=== PATIENT | female | born 1995 | race Caucasian/White ===

== ENCOUNTER 2025-02-08 11:28 | Outpatient (CLI) | payer MEDICAID, SELFPAY ==
[2025-02-08] VITALS (17 sets, daily range): BP systolic 82–105; BP diastolic 52–64; PULSE 62–91; RESP 16–99; TEMP 36.8; O2SAT 91–99; BMI 27.3
--- NOTE | 2025-02-08 11:35 | XR_ITS ---
Examination: Biophysical profile, ultrasound Date and time of exam: February 08, 2025, 12:00 p.m. INDICATIONS: Nonreactive NST at the doctor's office today Technique: Multiple transabdominal sonographic images of the pelvis abdomen obtained. Attention is directed to the breathing movement, gross body movement, amniotic fluid volume and tone. Findings: Amniotic fluid index 7.7 cm Total biophysical profile is 8 of 8. breathing movement is 2. Gross body movement is 2. tone is 2. Qualitative amniotic fluid volume is 2 Impression: Biophysical profile is 8 8 of 8.
== END 2025-02-08 12:54 | disposition home or self-care (01) ==
LOC: S4S1 11:30 → S4SX 11:30
PROVIDERS: Referring Provider Specialist; Visit Provider Specialist
DX: Z34.83 Encounter for supervision of other normal pregnancy, third trimester (principal); Z36.89 Encounter for other specified antenatal screening; Z3A.40 40 weeks gestation of pregnancy
CPT/HCPCS: 59025; 76819

== ENCOUNTER 2025-02-11 00:01 | Inpatient (IN) | payer MEDICAID, SELFPAY ==
[2025-02-11] VITALS (44 sets, daily range): BP systolic 102–119; BP diastolic 58–88; PULSE 65–121; RESP 14–98; TEMP 36.4–36.8; O2SAT 84–100; BMI 27.1
[2025-02-11 01:12] LABS: ROM Kit Exp Date# 04/11/28; ROM Kit Lot # 58106258; Rupture of Fetal Membranes Negative (Negative); Swb Mxed in Solvent 1 min? Yes
[2025-02-11] MEDS: ceFAZolin/D5W 2 GM IV 2 GM/100 ML BAG IV (01:52)
[2025-02-11] MEDS: CITRIC ACID/SODIUM CITR 15 ML UDC (BICITRA) 30 ML PO (01:53)
[2025-02-11] MEDS: FAMOTIDINE INJ 10 MG/ML VIAL 2 ML 20 MG IV (01:53)
--- NOTE | 2025-02-11 02:06 | PD.LDHP ---
Documentation for date of: 02/11/25 OB Labor/Induct. HPI History of Present Illness : 3 Para: 2 Term pregnancies: 2 pregnancies: 0 Living children: 2 History of Abortions: Spontaneous and Elective: 0 History of Vaginal deliveries: 2 History of sections: No History of : No Date of last menstrual period: 05/02/25 JAKE: 02/06/25 Gestational age based on last menstrual period: -11 History of present illness: Presents to MIU with ctx and recurrent late deceleratons at 40 plus weeks with cx 2 cm. Comments: See record for history History of Present Adequate Care: Yes Past Medical History Surgical History SURGICAL: Negative Section Meds Home Medications and Allergies Home Medications ?Medication ?Instructions ?Recorded ?Confirmed ?Type vits no.124-ferrous fum 1 tab PO QDAY 07/08/18 02/11/25 History 27 mg iron-folic acid 800 mcg tablet ( Vitamin) ferrous sulfate 325 mg (65 mg 325 mg PO BID 02/08/25 02/11/25 History iron) tablet (Feosol) Allergies Allergy/AdvReac Type Severity Reaction Status Date / Time No Known Allergies Allergy Verified 02/11/25 00:12 OB Exam Physical Exam Vital signs: Temp Pulse Resp BP Pulse Ox O2 Del Method 98.2 F 78 16 113/73 100 Room Air 02/11/25 00:17 02/11/25 00:17 02/11/25 00:17 02/11/25 00:17 02/11/25 02:04 02/11/25 00:03 OB Results Labs 02/11/25 01:40 Impressions Impression: HEENT : oropharynx and sclera clear Lungs : CTA B/L Heart:? RRR Abdomen: Gravid.?? Pelvic: see RN notes Ext:? Nontender Skin: No gross rashes or lesions Neuro: No focal deficit Psych: Alert and oriented A: Category 2 tracing trending to Category 3 P: Delivery: Informed Consent Obtained. Pt made aware of the risks, complications , alternative and benefits and she agrees. OB Assessment & Plan Assessment and Plan (1) Abnormality of heart: Status: Acute (2) delivery delivered: Status: Acute
[2025-02-11 02:13] LABS: Basophils # (Auto) 0.1 Thou/mm3 (0.0-0.2); Basophils % (Auto) 1 % (0-2.5); Eosinophils # (Auto) 0.3 Thou/mm3 (0.0-0.5); Eosinophils % (Auto) 2 % (0-10); Hematocrit 35.7 % (36.0-46.0); Hemoglobin 11.7 g/dL (12.0-16.0); Immature Granulocytes Auto 0.10 Thou/mm3 (0.00-0.00); Lymphocytes # (Auto) 3.3 Thou/mm3 (1.0-4.8); Lymphocytes % (Auto) 23 % (10-50); Mean Corpuscular HGB Conc 32.8 g/dl (31.0-37.0); Mean Corpuscular Hemoglobin 29.1 pg (25.0-35.0); Mean Corpuscular Volume 89 fL (80-100); Monocytes # (Auto) 1.0 Thou/mm3 (0.0-0.8); Monocytes % (Auto) 7 % (0-12); Neutrophils # (Auto) 9.5 Thou/mm3 (1.8-7.7); Neutrophils % (Auto) 67 % (37-80); Nucleated Red Blood Cell # 0.00 Thou/mm3 (0.00-0.00); Nucleated Red Blood Cell % 0 /100 WBC (0); Platelet Count 289 Thou/mm3 (140-440); RDW Standard Deviation 42.9 fL (36.4-46.3); Red Blood Count 4.02 Miln/mm3 (4.00-5.20); White Blood Count 14.3 Thou/mm3 (3.6-11.0)
[2025-02-11 02:46] LABS: Syphilis Nonreactive (Nonreactive)
--- NOTE | 2025-02-11 03:15 | PD.GYNPROC ---
Operative Note - CHIEF MINISTER Procedure Date of procedure: 02/11/25 Procedure Performed: Primary Low Transverse Via Pfannensteil Skin Incision Indication: IUP Procedure description: After proper informed consent was obtained and the patient was made aware of the risks, complications, alternatives and benefits of the proposed procedure she was taken to the operating room where she underwent induction of spinal anesthesia. She was prepped and draped in the usual sterile fashion. A timeout was performed.? A Pfannenstiel skin incision was made with the scalpel and carried through to the underlying layer of fascia with the Bovie. The fascia was nicked in the midline incision and the incision was extended bilaterally with the Bovie. The inferior aspect of the fascial incision was grasped with Rashi clamps elevated and the underlying rectus muscle dissected off with the Bovie. The superior aspect the fascial incision was grasped with Rashi clamps elevated and the underlying rectus muscle dissected off with the Bovie. The rectus muscles were in the midline. The peritoneum was grasped between 2 Pierce clamps and entered sharply with the Metzenbaum scissors. The peritoneum was extended superiorly and inferiorly with good visualization of the bladder. The vesicouterine peritoneum was incised transversely and the bladder flap created digitally. A Salome blade was inserted. A low transverse incision was made in the uterus with a scapel and the incision was extended digitally. The 's head delivered and the mouth and nose were suctioned with the bulb suction. The shoulder and body delivered atraumatically. The cord was clamped after 30 second delayed cord clamping and the cord was cut.? The infant was handed off to the waiting Pediatric staff, cord blood was collected for lab testing. The placenta was removed complete and intact. The uterus was exteriorized and cleared of all clots and debris. The uterine incision was closed with #1-0 chromic catgut suture in a running interlocking fashion. A second layer of the same suture was used to imbricate the first layer and obtain excellent hemostasis. The vesicouterine peritoneum was closed with 2-0 chromic catgut suture in a running fashion. The firm uterus was returned to the abdomen. The gutters were cleared of all clots and debris. The peritoneum was closed with 0 chromic catgut suture in running fashion. The rectus muscle was closed with 0 chromic catgut suture. The fascia was closed with 0 Vicryl beginning at each angle and ending in the center in a running fashion. The subcutaneous tissue was irrigated with warmed normal saline solution and found to be hemostatic. The subcutaneous tissue was closed with 2-0 chromic catgut suture in a running fashion. The skin was closed with 4-0 Monocryl. A Dermabond Prineo dressing was applied and a sterile pressure dressing was applied.? She tolerated the procedure well. Counts were correct. I discussed with the patient the nature of her condition, intraoperative findings and expectation for recovery all? questions answered. Surgical staff Operation Date: 02/11/25 02:45 <No data on this case meets the specified criteria> Diagnosis Problem List Completed Was Problem List Reviewed/Reconciled?: Yes
--- NOTE | 2025-02-11 03:18 | ESDS_ITS ---
DS: Providers Provider Date of admission: 02/11/25 01:34 Primary care physician: Physician No Primary/Family Admitting Provider: Tray Merino MD Attending Provider on Admission: Tray Merino MD Attending Provider on DC: Tray Merino MD Discharging Provider: Tray Merino MD DS: Diagnosis Problem List Completed Was Problem List Reviewed/Reconciled?: Yes Summary/Hosp Course Brief History: Presents to MIU with ctx and recurrent late deceleratons at 40 plus weeks with cx 2 cm. Peripartum Data Delivery Method: Low Transverse Procedures: Procedures Operation Date: 02/11/25 02:45 <No data on this case meets the specified criteria> Time Spent with Patient Time attestation: Total time spent providing and/or coordinating discharge services: Exam Vital Signs Temp Pulse Resp BP Pulse Ox O2 Del Method 98.2 F 78 16 113/73 100 Room Air 02/11/25 00:17 02/11/25 00:17 02/11/25 00:17 02/11/25 00:17 02/11/25 02:04 02/11/25 00:03 Discharge Plan Plan Patient Disposition: HOME (Self Care) Patient condition on transfer: Stable Prescriptions/Referrals Prescriptions/Med Rec: New hydrocodone-acetaminophen 5-325 mg tablet 1 tab PO Q6H MDD 4 PRN (Reason: pain) Qty: 20 0RF ibuprofen 600 mg tablet 600 mg PO Q6H PRN (Reason: pain) Qty: 30 0RF Continued Vitamin 27 mg iron- 800 mcg Tablet 1 tab PO QDAY Discontinued ferrous sulfate [Feosol] 325 mg (65 mg iron) tablet 325 mg PO BID Referrals: No Primary/Family,Physician [Primary Care Provider] Patient/Caregiver Discharge Instructions Discharge Activity: activity as tolerated Other Discharge Activity Instructions:: Follow up office 1 week. Education Materials: C Section Dc Print Language: Kinyarwanda Stand Alone Forms: Brooke Award Info., Patient Portal Info Letter Discharge Order Discharge Orders: Discharge (Routine); Ordered 02/13/25 Ordered By: Tray Merino Planned Discharge Date 02/13/25
[2025-02-11] MEDS: OXYTOCIN in NS 20 units 20 UNIT/1,000 ML BAG 125 UNIT IV ×2 (03:32→08:02)
[2025-02-11] MEDS: HYDROcodone/APAP 5/325 TABLET 1 TAB PO (05:14)
[2025-02-11] MEDS: ONDANSETRON INJ 2 MG/ML INJ 2 ML 4 MG IVP (07:57)
[2025-02-11] MEDS: DOCUSATE SOD 100 MG CAPSULE PO (07:57)
[2025-02-11 08:01] LABS: Amphetamine/Metham Scrn,Ur OB Negative (Negative); Benzoylecgonine Screen, Ur OB Negative (Negative); Opiate Screen,Urine OB Negative (Negative); THC Screen,Urine OB Positive (Negative)
[2025-02-11 09:03] LABS: Basophils # (Auto) 0.0 Thou/mm3 (0.0-0.2); Basophils % (Auto) 0 % (0-2.5); Eosinophils # (Auto) 0.1 Thou/mm3 (0.0-0.5); Eosinophils % (Auto) 0 % (0-10); Hematocrit 28.5 % (36.0-46.0); Hemoglobin 9.4 g/dL (12.0-16.0); Immature Granulocytes Auto 0.11 Thou/mm3 (0.00-0.00); Lymphocytes # (Auto) 1.5 Thou/mm3 (1.0-4.8); Lymphocytes % (Auto) 9 % (10-50); Mean Corpuscular HGB Conc 33.0 g/dl (31.0-37.0); Mean Corpuscular Hemoglobin 29.5 pg (25.0-35.0); Mean Corpuscular Volume 89 fL (80-100); Monocytes # (Auto) 1.2 Thou/mm3 (0.0-0.8); Monocytes % (Auto) 7 % (0-12); Neutrophils # (Auto) 14.5 Thou/mm3 (1.8-7.7); Neutrophils % (Auto) 83 % (37-80); Nucleated Red Blood Cell # 0.00 Thou/mm3 (0.00-0.00); Nucleated Red Blood Cell % 0 /100 WBC (0); Platelet Count 227 Thou/mm3 (140-440); RDW Standard Deviation 43.3 fL (36.4-46.3); Red Blood Count 3.19 Miln/mm3 (4.00-5.20); White Blood Count 17.4 Thou/mm3 (3.6-11.0)
[2025-02-11] MEDS: SIMETHICONE 80 MG CHEW PO (19:52)
[2025-02-11] MEDS: KETOROLAC INJ 30 MG/ML VIAL IVP (19:52)
[2025-02-12 03:35] VITALS: BP 99/63; PULSE 70; RESP 14; TEMP 36.8; O2SAT 98
[2025-02-12] MEDS: DOCUSATE SOD 100 MG CAPSULE PO (08:05)
[2025-02-12] MEDS: Milk Of Magnesia Susp 30 ML UDC PO (08:05)
[2025-02-12] MEDS: SIMETHICONE 80 MG CHEW PO ×2 (08:05→12:04)
[2025-02-12] MEDS: IBUPROFEN TAB 400 MG TABLET 800 MG PO ×2 (08:05→17:18)
[2025-02-12 08:07] VITALS: BP 98/66; PULSE 61; RESP 16; TEMP 36.7; O2SAT 98
--- NOTE | 2025-02-12 09:15 | ESPR_ITS ---
RE: ZAHRAA GARDINER : 1995 DATE OF SERVICE: 02/12/2025 SUBJECTIVE: Postop day #1. Patient denies any problem or complaints. She is voiding. She is ambulating. She is tolerating diet. She is passing flatus. She denies any excessive vaginal bleeding. She denies any dizziness or lightheadedness. She denies any chest pain, palpitations, shortness of breath, or lower extremity pain. OBJECTIVE: VITAL SIGNS: Blood pressure 99/63, heart rate 70, respirations 14, temperature is 98.2, pulse ox is 98% on room air. LUNGS: Clear to auscultation bilaterally. HEART: Regular rate and rhythm. ABDOMEN: Dressing dry and intact. Fundus is firm. EXTREMITIES: Nontender. LABORATORY DATA: Hemoglobin pre-delivery is 11.7, post-delivery is 9.4. ASSESSMENT: 1. Postop day #1, status post delivery. 2. Anemia, but hemodynamically stable. PLAN: 1. Remove dressing. 2. Discontinue IV. 3. Encourage ambulation. 4. support. 5. Possible discharge home tomorrow. DT: 08:29:31 TT: 09:14:00 Ref: [id number] - TID: [id number] [facility]
--- NOTE | 2025-02-12 11:19 | OBDSUM_ITS ---
Data (José) Data Hx Section: Yes (02/11/2025) : 3 Term: 2 : 0 Livin Abortions: Spontaneous & Theraputic: 0 Delivery Data (José) Labor Data Initiation of labor: Induction Induction/Augmentation Agent: Artificial ROM ROM date: 02/11/25 ROM time: 02:32 Amniotic membrane rupture type: Artificial Amniotic fluid description: Clear Delivery Data EDC: 02/06/25 EDC calculated by:: LMP/early US confirmation delivery date: 02/11/25 delivery time: 02:33 Gestational age (weeks): 40 Gestational age (days): 5 Placenta delivery date: 02/11/25 Placenta delivery time: 02:34 Delivered by: Tray Merino Delivery nurse: Geno Carmen nurse: Dana Mcdermott Copy Center Specialist at delivery: No Support person(s) at delivery: Mother Bertha Other staff at delivery: Sin Tenorio aviation technician Delivery Method Delivery method: Low Transverse Presentation: Vertex position: OA Anesthesia Type Anesthesia Type: Spinal Placenta Placenta delivery description: Manual Removal Cord blood sent to lab: Yes cord blood collection: Cord Blood Type EBL Estimated blood loss (ml): 800 Umbilical Cord cord description: 3 Vessels Additional Procedures None Complications Complications: None Blanchard Data (José) Blanchard Data order: 1 Blanchard's gender: Female Identification band number: [id number] weight (gms): 7 lb 4.757 oz Weight (pounds): 7 lbs and 4.8 ozs 1 minute: 9 5 minutes: 9
--- NOTE | 2025-02-12 11:21 | PD.GYNPROC ---
Operative Note - BUSINESS COMMUNICATIONS INSTRUCTOR Procedure Date of procedure: 02/11/25 Procedure Performed: Priamry Low Transverse Delivery via Pfanensteil Skin Incision. Indication: Viable IUP 40w5d by best dates. Category 2 tracing Trending to Category 3 Remote from Delivery Pre-Op diagnosis: Viable IUP 40w5d by best dates. Category 2 tracing Trending to Category 3 Remote from Delivery Post-Op diagnosis: Viable IUP 40w5d by best dates. Category 2 tracing Trending to Category 3 Remote from Delivery Nuchal cord Anesthesia type: Spinal Procedure description: After proper informed consent was obtained and the patient was made aware of the risks, complications, alternatives and benefits of the proposed procedure she was taken to the operating room where she underwent induction of spinal anesthesia. She was prepped and draped in the usual sterile fashion. A timeout was performed.? A Pfannenstiel skin incision was made with the scalpel and carried through to the underlying layer of fascia with the Bovie. The fascia was nicked in the midline incision and the incision was extended bilaterally with the Bovie. The inferior aspect of the fascial incision was grasped with Rashi clamps elevated and the underlying rectus muscle dissected off with the Bovie. The superior aspect the fascial incision was grasped with Rashi clamps elevated and the underlying rectus muscle dissected off with the Bovie. The rectus muscles were in the midline. The peritoneum was grasped between 2 Pierce clamps and entered sharply with the Metzenbaum scissors. The peritoneum was extended superiorly and inferiorly with good visualization of the bladder. The vesicouterine peritoneum was incised transversely and the bladder flap created digitally. A [place] blade was inserted. A low transverse incision was made in the uterus with a scapel and the incision was extended digitally. The 's head delivered and the mouth and nose were suctioned with the bulb suction. The nuchal cord reduced. The shoulder and body delivered atraumatically. The cord was clamped after 30 second delayed cord clamping and the cord was cut.? The female was handed off to the waiting Pediatric staff, cord blood was collected for lab testing. The placenta was removed complete and intact. The uterus was exteriorized and cleared of all clots and debris. The uterine incision was closed with #1-0 chromic catgut suture in a running interlocking fashion. A second layer of the same suture was used to imbricate the first layer and obtain excellent hemostasis. The vesicouterine peritoneum was closed with 2-0 chromic catgut suture in a running fashion. The firm uterus was returned to the abdomen. The gutters were cleared of all clots and debris. The peritoneum was closed with 0 chromic catgut suture in running fashion. The rectus muscle was closed with 0 chromic catgut suture. The fascia was closed with 0 Vicryl beginning at each angle and ending in the center in a running fashion. The subcutaneous tissue was irrigated with warmed normal saline solution and found to be hemostatic. The subcutaneous tissue was closed with 2-0 chromic catgut suture in a running fashion. The skin was closed with 4-0 Monocryl. A Dermabond Prineo dressing was applied and a sterile pressure dressing was applied.? She tolerated the procedure well. Counts were correct. I discussed with the patient the nature of her condition, intraoperative findings and expectation for recovery all? questions answered. Specimen: none Estimated blood loss (ml): 800 Findings: Live infant female 9 and 9 Weight 7 lbs and 5 oz. Clear amniotic fluid Nuchal cord Placenta removed complete and infact Uterus, ovaries and fallopian tubes grossly wnl. Complications: none Surgical staff Dr. Merino Operation Date: 02/11/25 02:45 Case Staff CLINIC CHARGE NURSE: Gary Fabian RNsoftware configuration analyst: Sin Polanco Diagnosis Problem List Completed Was Problem List Reviewed/Reconciled?: Yes
--- NOTE | 2025-02-12 11:27 | PD.LDDELS ---
Data (José) Data Hx Section: Yes (02/11/2025) : 3 Term: 2 : 0 Livin Abortions: Spontaneous & Theraputic: 0 Delivery Data (José) Labor Data Initiation of labor: Induction Induction/Augmentation Agent: Artificial ROM ROM date: 02/11/25 ROM time: 02:32 Amniotic membrane rupture type: Artificial Amniotic fluid description: Clear Delivery Data EDC: 02/06/25 EDC calculated by:: LMP/early US confirmation delivery date: 02/11/25 delivery time: 02:33 Gestational age (weeks): 40 Gestational age (days): 6 Placenta delivery date: 02/11/25 Placenta delivery time: 02:34 Delivered by: Tray Merino Delivery nurse: Geno Singleton RN [place] nurse: Dana Mcdermott Wild Oyster Harvester at delivery: No Support person(s) at delivery: Mother Bertha Other staff at delivery: Sin Tenorio industrial engineering technologist Delivery Method Delivery method: Low Transverse Presentation: Vertex position: OP Anesthesia Type Anesthesia Type: Spinal Anesthesia type: Spinal Placenta Placenta delivery description: Manual Removal Cord blood sent to lab: Yes cord blood collection: Cord Blood Type EBL Estimated blood loss (ml): 800 Umbilical Cord cord description: 3 Vessels and Nuchal Cord Additional Procedures None Complications Complications: None Data (José) Alpine Data order: 1 Alpine's gender: Female Identification band number: [id number] weight (gms): 7 lb 4.757 oz Weight (pounds): 7 lbs and 4.8 ozs 1 minute: 9 5 minutes: 9
[2025-02-12] MEDS: ACETAMINOPHEN 325 MG TABLET 650 MG PO (12:04)
[2025-02-12 12:32] VITALS: BP 104/64; PULSE 65; RESP 18; TEMP 36.8; O2SAT 98
[2025-02-12 20:00] VITALS: BP 122/78; PULSE 68; RESP 18; TEMP 37; O2SAT 95
[2025-02-12] MEDS: HYDROcodone/APAP 5/325 TABLET 1 TAB PO (21:03)
[2025-02-13 04:05] VITALS: BP 99/62; PULSE 61; RESP 18; TEMP 37.1; O2SAT 97
--- NOTE | 2025-02-13 06:33 | ESPR_ITS ---
RE: ZAHRAA GARDINER : 1995 DATE OF SERVICE: 02/13/2025 SUBJECTIVE: Postop day #2. Patient denies any problem or complaints. She is voiding. She is ambulating. She is tolerating diet. She is passing flatus. She denies any excessive vaginal bleeding. She denies any dizziness or lightheadedness. She denies any chest pain, palpitations, shortness of breath, or lower extremity pain. OBJECTIVE: VITAL SIGNS: Blood pressure 99/62, heart rate 61, respirations 18, temperature is 98.7, pulse oximetry is 97% on room air. LUNGS: Clear to auscultation bilaterally. HEART: Regular rate and rhythm. ABDOMEN: Incision clean and intact. Fundus is firm. EXTREMITIES: Nontender. ASSESSMENT: 1. Postop day #2 status post delivery. 2. Anemia, but hemodynamically stable. PLAN: Discharge home. Discharge instructions given. Follow up in the office in 1 week. DT: 06:14:16 TT: 06:32:00 Ref: [id number] - TID: [id number]
[2025-02-13 08:28] VITALS: BP 103/67; PULSE 71; RESP 16; TEMP 36.8; O2SAT 98
[2025-02-13] MEDS: DOCUSATE SOD 100 MG CAPSULE PO (08:41)
[2025-02-13] MEDS: ACETAMINOPHEN 325 MG TABLET 650 MG PO (08:41)
[2025-02-13 11:30] VITALS: BP 102/65; PULSE 77; RESP 16; TEMP 37; O2SAT 96
--- NOTE | 2025-02-13 11:41 | PC.SS ---
CWS report provided to CWS staff, Laura Gómez. CWS report submitted electronically. CWS report placed in patient's chart. CWS to staff case unable to provide QUALITY SUPERVISOR with response mode. Bedside nurse updated.
--- NOTE | 2025-02-13 11:46 | PC.SS ---
QUALITY CONTROL INSPECTOR conducted bedside contact with the patient to address nursing referral indicating that patient and infant were positive for THC upon admission.? QUALITY CONTROL INSPECTOR introduced self and role.? QUALITY CONTROL INSPECTOR discussed basis of referral.? Patient confirmed use of THC to address sleep disturbance.? Patient stated that last use of THC was 02-08-25.? Patient informed QUALITY CONTROL INSPECTOR ingestion of THC edible.? Patient reports that edibles stored out of reach of other children.? Patient plans on discontinuing use of edibles.? QUALITY CONTROL INSPECTOR informed patient that a CWS report will be generated due to positive toxicology reports.? Patient acknowledged submittal of report.? FOB, Juan Joaquin; will be involved in the rearing of the , Heather.? is patient?s third child.? Other children are ages 7 and 6 years old.? Patient delivered via , full-term.? Patient plans of the .? OB provider Dr. Merino. Patient reports consistency with OB appointments.? Patient reports employment.? Patient is not receiving WIC, SNAP or TANF.? Patient denies history of alcohol/drug abuse.? Patient denies CWS intervention.? Patient denies episodes of domestic violence.? Patient denies possessing a history of mental health, reports no current possession of depression or anxiety.? Patient has access to appropriate supplies and equipment; to include a car seat.? Patient?s mother will provide transportation upon discharge.? Patient describes possessing support system consisting of FOB, parents and extended family.? QUALITY CONTROL INSPECTOR provided the patient with community resources to include Parenting Network and Warm Line.? No further intervention required at this time, social services analyst will be available to address any further concerns.? QUALITY CONTROL INSPECTOR updated bedside nurse.?
[2025-02-13] MEDS: HYDROcodone/APAP 5/325 TABLET 2 TAB PO (16:00)
== END 2025-02-13 18:28 | disposition home or self-care (01) | DRG 540 ==
LOC: S4SX 01:47 → S4NX 02:13
PROVIDERS: Admitting Provider Specialist; Visit Provider Specialist
PROC: 10D00Z1 Extraction of Products of Conception, Low, Open Approach (ICD-10-PCS; CPT 59514; principal; 2025-02-11 02:30)
DX: O48.0 Post-term pregnancy (principal); O69.81X0 Labor and delivery complicated by cord around neck, without compression, not applicable or unspecified; O99.02 Anemia complicating childbirth; Z37.0 Single live birth; Z3A.40 40 weeks gestation of pregnancy
CPT/HCPCS: 36415; 59409; 80307; 84112; 85025; 86780; 86850; 86900; 86901; 94762; A4217; A4314; A4649; J0689; J1885; J2250; J2274; J2405; J2590; J3490; A9270; J2270